=== PATIENT | female | born 1940 | race Caucasian/White ===

== ENCOUNTER 2018-08-31 05:49 | Day surgery (SDC) | payer MEDICARE ==
[~2018-08-31 05:49] MED LIST: ALENDRONATE70 MG PO; ASPIRIN81 MG PO; B121000 MCG; CYMBALTA30 MG PO; GABAPENTIN100 MG PO; MULTI VIT PO; OMEPRAZOLE20 M2 PO; RANITIDINE 150150 MG
[2018-08-31 09:25] VITALS: BP 137/64
== END 2018-08-31 09:35 | disposition home or self-care (01) ==
LOC: ENDO 05:49 → ORM 09:00 → ENDO 09:00
PROVIDERS: ATTEND Internal Medicine Gastroenterology
PROC: 0DB98ZX Excision of Duodenum, Via Natural or Artificial Opening Endoscopic, Diagnostic (ICD-10-PCS; principal; 2018-08-31)
PROC: 0DB68ZX Excision of Stomach, Via Natural or Artificial Opening Endoscopic, Diagnostic (ICD-10-PCS; 2018-08-31)
PROC: 0DB48ZX Excision of Esophagogastric Junction, Via Natural or Artificial Opening Endoscopic, Diagnostic (ICD-10-PCS; 2018-08-31)
DX: K21.0 Gastro-esophageal reflux disease with esophagitis (principal); K44.9 Diaphragmatic hernia without obstruction or gangrene; K31.7 Polyp of stomach and duodenum; K29.70 Gastritis, unspecified, without bleeding; K31.9 Disease of stomach and duodenum, unspecified; D64.9 Anemia, unspecified; E34.0 Carcinoid syndrome; K76.9 Liver disease, unspecified; K57.30 Diverticulosis of large intestine without perforation or abscess without bleeding; K64.8 Other hemorrhoids; F32.9 Major depressive disorder, single episode, unspecified; J45.909 Unspecified asthma, uncomplicated; Z79.899 Other long term (current) drug therapy; Z86.010 Personal history of colon polyps